=== PATIENT | female | born 1955 | race Caucasian/White ===

== ENCOUNTER 2021-03-05 11:29 | Outpatient (CLI) | payer OTHER, SELFPAY ==
--- NOTE | ~2021-03-05 | XR_ITS ---
EXAMINATION: XR chest 2V 03/05/2021 11:58 INDICATION: Chest pain and cough PROCEDURE: 2 view chest COMPARISON: No prior studies for comparison. FINDINGS: The lungs are clear. The cardiomediastinal silhouette is within normal limits. There are no pleural effusions. There is no pneumothorax suspected. IMPRESSION: 1: NO ACUTE CARDIOPULMONARY DISEASE. Reviewed, dictated and finalized at location B.
== END 2021-03-05 11:30 | disposition home or self-care (01) ==
PROVIDERS: PCP Family Medicine; Visit Provider Family Medicine
DX: R05 Cough (principal)
CPT/HCPCS: 71046

== ENCOUNTER 2021-03-15 09:35 | Outpatient (CLI) | payer OTHER, SELFPAY ==
--- NOTE | 2021-03-15 09:45 | EST_ITS ---
Patient Info Name: Sharif Mendoza Age: 65 years : 1955 Gender: Female Ht: 61 in Wt: 150 lbs BSA: 1.73 m2 Exam Date: 03/15/2021 10:32 AM Exam Location: [facility] Stress Patient Status: Outpatient Admit Date: 03/15/2021 Staff Ordering Physician: Avinash Brothers MD Attending Provider: Avinash Brothers MD Exercise Technologist: Marita Smith RDCS Exercise Physician: Juventino Melvin DO Exam Type: CA stress test treadmill Study Info Indications R07.9 - Chest pain, unspecified A treadmill exercise stress test was performed. Summary 1. 1. Negative Anshul exercise stress test for ischemic ST changes by ECG criteria. 2. 2. Good functional capacity, achieving 10 METs of workload. 3. 3. Baseline hypertension with hypertensive response to exercise. 4. 4. Appropriate HR response to exercise. 5. 5. Appropriate HR recovery at 1 minute post exercise. 6. 6. No imaging with stress testing. 7. 7. Patient informed of the above results. Protocol: Anshul Stress ECG Details Stage: REST Duration (min): 6 min : 53 sec Speed (mph): 0.0 Grade (%): 0 HR (bpm): 59 SBP (mmHg): 159 DBP (mmHg): 88 METS: --- Stage: REST Duration (min): 23 min : 18 sec Speed (mph): 0.0 Grade (%): 0 HR (bpm): 60 SBP (mmHg): 159 DBP (mmHg): 88 METS: --- Stage: STAGE 1 Duration (min): 1 min : 0 sec Speed (mph): 1.7 Grade (%): 10 HR (bpm): 91 SBP (mmHg): 159 DBP (mmHg): 88 METS: --- Stage: STAGE 1 Duration (min): 2 min : 0 sec Speed (mph): 1.7 Grade (%): 10 HR (bpm): 98 SBP (mmHg): 159 DBP (mmHg): 88 METS: --- Stage: STAGE 1 Duration (min): 3 min : 0 sec Speed (mph): 1.7 Grade (%): 10 HR (bpm): 101 SBP (mmHg): 184 DBP (mmHg): 92 METS: --- Stage: STAGE 2 Duration (min): 1 min : 0 sec Speed (mph): 2.5 Grade (%): 12 HR (bpm): 107 SBP (mmHg): 184 DBP (mmHg): 92 METS: --- Stage: STAGE 2 Duration (min): 2 min : 0 sec Speed (mph): 2.5 Grade (%): 12 HR (bpm): 119 SBP (mmHg): 205 DBP (mmHg): 78 METS: --- Stage: STAGE 2 Duration (min): 3 min : 0 sec Speed (mph): 2.5 Grade (%): 12 HR (bpm): 113 SBP (mmHg): 205 DBP (mmHg): 78 METS: --- Stage: STAGE 3 Duration (min): 1 min : 0 sec Speed (mph): 3.4 Grade (%): 14 HR (bpm): 129 SBP (mmHg): 208 DBP (mmHg): 84 METS: --- Stage: STAGE 3 Duration (min): 2 min : 0 sec Speed (mph): 3.4 Grade (%): 14 HR (bpm): 143 SBP (mmHg): 208 DBP (mmHg): 84 METS: --- Stage: STAGE 3 Duration (min): 2 min : 30 sec Speed (mph): 3.4 Grade (%): 14 HR (bpm): 145 SBP (mmHg): 208 DBP (mmHg): 84 METS: --- Stage: RECOVERY Duration (min): 0 min : 29 sec Speed (mph): 0.0 Grade (%): 0 HR (bpm): 130 SBP (mmHg): 205 DBP (mmHg): 87 METS: ---
== END 2021-03-15 09:36 | disposition home or self-care (01) ==
PROVIDERS: PCP Family Medicine; Visit Provider Family Medicine
DX: R07.9 Chest pain, unspecified (principal)
CPT/HCPCS: 93017

== ENCOUNTER 2022-03-22 01:35 | Day surgery (SDC) | payer MEDICARE, SELFPAY ==
[2022-03-12 09:48] VITALS: BMI 30.4
[2022-03-22 09:01] VITALS: BP 136/92; PULSE 84; RESP 18; TEMP 36.4; O2SAT 99; BMI 30.7
--- NOTE | 2022-03-22 09:06 | WPDANESEPPF ---
Anes - Initial Pre Proc Eval Procedure: Operation Date: 03/22/22 10:00 Proposed Procedures p Esophagogastroduodenoscopy & Colonoscopy - Isaias Morales MD Date/Time: 03/22/22 09:06 Surgeon: Isaias Morales MD Pre Op Diagnosis: hx of colon polyps; gerd Patient Data Age: 66 Gender: F Height: 1.55 m Weight: 73.9 kg Last Vital Signs Temp 36.4 C L 03/22/22 09:01 Pulse 84 03/22/22 09:01 Resp 18 03/22/22 09:01 BP 136/92 H 03/22/22 09:01 Pulse Ox 99 03/22/22 09:01 Allergies Allergy/AdvReac Type Severity Reaction Status Date / Time No Known Allergies Allergy Mild n/a Uncoded 03/12/22 10:04 Home Medications Medication Instructions Recorded Confirmed Type fluticasone propionate 50 1 spray INTRANASAL PRN PRN 08/14/21 03/12/22 History mcg/actuation nasal spray,suspension oxybutynin chloride 10 mg 10 mg PO DAILY 08/14/21 03/12/22 History tablet,extended release 24 hr estradiol 1 g VAGINAL 2XW #42.5 g 01/08/22 03/12/22 Rx atorvastatin 10 mg tablet 10 mg PO DAILY #90 tablet 01/11/22 03/12/22 Rx irbesartan 150 mg tablet 150 mg PO DAILY #90 tablet 01/11/22 03/12/22 Rx omeprazole 20 mg capsule,delayed 20 mg PO DAILY #90 cap 02/19/22 03/12/22 Rx release meloxicam 15 mg tablet 15 mg PO DAILY PRN #60 tablet 03/07/22 03/12/22 Rx sertraline 100 mg tablet 100 mg PO DAILY #90 tablet 03/07/22 03/12/22 Rx Patient hx anesthesia problems: none Family hx anesthesia problems: none Results Review: All pre-operative results and documents have been reviewed as part of the pre-operative evaluation. [facility] Past Medical History Medical History Acute bronchitis Acute non-recurrent maxillary sinusitis Anxiety and depression BMI 28.0-28.9,adult BMI 29.0-29.9,adult BMI 31.0-31.9,adult Carpal tunnel syndrome of right wrist Chest pain exercise stress test on 03/15/2021 was normal Chronic cough Chronic flank pain (~01/2022) right flank pain intermittent Encounter for Papanicolaou smear for cervical cancer screening GERD (gastroesophageal reflux disease) Hordeolum externum left lower eyelid Obesity (BMI 30.0-34.9) Polyp of colon (08/09/19) 10-13 mm polyp at splenic flexure on colonoscopy 08/09/2019 with recheck in 3-[address] Morales Screening mammogram, encounter for Mammogram 01/14/2022 unremarkable with recheck in 1 year. Welcome to Medicare preventive visit Surgical History Surgical History History of gynecological procedure (02/23/19) Tension-free vaginal tape History of gynecological procedure (~11/10/94) Tubal Sterilization Family History Family History Sibling Breast cancer sister Social History Social History Smoking status: Never smoker Alcohol intake: never Substance use: never Substance use type: does not use Living arrangements: with family Additional living arrangements comments: spouse Gender identity (if verbalized by the patient): Female Sexual Orientation (if Verbalized by the Patient): Straight or Heterosexual Spiritual care concerns: No Anes - Eval Final PreProcedure Day of Procedure 03/22/22 09:06 Patient weight: obese Heart: regular rate and rhythm Lungs: clear to auscultation Airway: Mallampati scale class II Neurological: alert and oriented Last oral intake: >/= 8 hours ASA classification: III Emergent: no Anesthetic plan: proceed Anesthesia type and monitoring: general GIVS and standard monitoring Results Review: All pre-operative results and documents have been reviewed as part of the pre-operative evaluation. Informed Consent: The patient's anesthetic plan and its attendant risks and benefits were discussed with the patient/family/POA. Questions were solicited and answers provided to the satisfaction of the patien
[2022-03-22] MEDS: LACTATED RINGERS 1,000 ML 150 ML IV CONT (09:08)
--- NOTE | 2022-03-22 09:12 | WPDGICN ---
Assessment and Plan Assessment and plan (1) GERD (gastroesophageal reflux disease): Qualifiers: Esophagitis presence: without esophagitis Qualified Code(s): K21.9 - Gastro-esophageal reflux disease without esophagitis Code(s): K21.9 - Gastro-esophageal reflux disease without esophagitis Status: Acute Assessment and Plan: Patient with chronic GE reflux disease. Currently controlled with omeprazole 20mg p.o. daily and anti-reflux measures. Plan to continue this therapy EGD will be performed because of chronic GE reflux. further recommendations may be given after endoscopy. (2) History of colon polyps: Code(s): Z86.010 - Personal history of colonic polyps Status: Acute Assessment and Plan: Patient has a history of colon polyps. Most recently 2019. Further recommendations will be given after follow-up colonoscopy today. GI Consult Note Consult date/time: 03/22/22 09:12 HPI: Sharif Mendoza is a 66 year old female Presents for colonoscopy an EGD. Patient has a history of colon polyps. Most recently found to have colon polyps in 2019. She presents today for follow-up screening surveillance colonoscopy. She reports that her current weight appetite and bowel movements are normal. She presents for neoplasia screening colonoscopy. Additionally patient reports a long history of heartburn and acid reflux. She has been treated with omeprazole 20mg p.o. daily with good response to symptoms. She no longer has heartburn. She denies any dysphagia. Although states occasionally drinking water will make her cough. She has had no weight loss or bleeding. Family history noncontributory. EGD is requested because of chronic heartburn. Review of Systems Review of Systems: All systems reviewed & are unremarkable except as noted in HPI and below [facility] Past Medical History Medical History Acute bronchitis Acute non-recurrent maxillary sinusitis Anxiety and depression BMI 28.0-28.9,adult BMI 29.0-29.9,adult BMI 31.0-31.9,adult Carpal tunnel syndrome of right wrist Chest pain exercise stress test on 03/15/2021 was normal Chronic cough Chronic flank pain (~01/2022) right flank pain intermittent Encounter for Papanicolaou smear for cervical cancer screening GERD (gastroesophageal reflux disease) Hordeolum externum left lower eyelid Obesity (BMI 30.0-34.9) Polyp of colon (08/09/19) 10-13 mm polyp at splenic flexure on colonoscopy 08/09/2019 with recheck in 3-[address] Morales Screening mammogram, encounter for Mammogram 01/14/2022 unremarkable with recheck in 1 year. Welcome to Medicare preventive visit Surgical History Surgical History History of gynecological procedure (02/23/19) Tension-free vaginal tape History of gynecological procedure (~11/10/94) Tubal Sterilization Family History Family History Sibling Breast cancer sister Social History Social History Smoking status: Never smoker Alcohol intake: never Substance use: never Substance use type: does not use Living arrangements: with family Additional living arrangements comments: spouse Gender identity (if verbalized by the patient): Female Sexual Orientation (if Verbalized by the Patient): Straight or Heterosexual Spiritual care concerns: No Meds Home Medications and Allergies Home Medications Medication Instructions Recorded Confirmed Type fluticasone propionate 50 1 spray INTRANASAL PRN PRN 08/14/21 03/12/22 History mcg/actuation nasal spray,suspension oxybutynin chloride 10 mg 10 mg PO DAILY 08/14/21 03/12/22 History tablet,extended release 24 hr estradiol 1 g VAGINAL 2XW #42.5 g 01/08/22 03/12/22 Rx atorvastatin 10 mg tablet 10 mg PO DAILY #90
[2022-03-22 10:07] VITALS: BP 107/64; PULSE 89; RESP 19; O2SAT 97
[2022-03-22 10:17] VITALS: BP 113/67; PULSE 81; RESP 23; O2SAT 95
[2022-03-22 10:27] VITALS: BP 117/68; PULSE 85; RESP 20; O2SAT 96
--- NOTE | 2022-03-22 12:30 | SUR.OPER ---
EGD START 945, END 950 COLONOSCOPY START 956, END 1006 ANESTHESIA PROVIDED YANKAUER SUCTION AND AMBU BAG ASSISTANCE TO PT DURING PROCEDURE.
== END 2022-03-22 10:30 | disposition home or self-care (01) ==
PROVIDERS: PCP Family Medicine; Visit Provider Internal Medicine Gastroenterology
PROC: 0DJ08ZZ Inspection of Upper Intestinal Tract, Via Natural or Artificial Opening Endoscopic (ICD-10-PCS; CPT 43235; principal; 2022-03-22 10:00)
DX: Z12.11 Encounter for screening for malignant neoplasm of colon (principal); K64.8 Other hemorrhoids; D12.2 Benign neoplasm of ascending colon; K21.9 Gastro-esophageal reflux disease without esophagitis; F41.8 Other specified anxiety disorders; E66.9 Obesity, unspecified; Z68.30 Body mass index [BMI] 30.0-30.9, adult
CPT/HCPCS: 45385; 43235; 88305; J2704; J7120

== ENCOUNTER 2024-05-01 12:19 | Emergency (ER) | payer MEDICARE, SELFPAY ==
--- NOTE | ~2024-05-01 | XR_ITS ---
XR wrist RT min 3V DATE: 05/01/2024 13:09 INDICATION: Fell today. Wrist injury, lateral pain. TECHNIQUE: 4 views COMPARISON: None FINDINGS: Approximately 2.8 mm dorsally displaced comminuted intra-articular fracture of the distal r adius with mild impaction. There is approximately 13 degrees apex anterior angulation with associated dorsal inclination of the distal radial articular surface. Normal radiocarpal alignment. IMPRESSION: Impacted comminuted intra-articular approximately 2.8 mm dorsally displaced fracture of t he distal radius with 13 degrees apex anterior angulation Reviewed, dictated and finalized at location A. IMPRESSION: Impacted comminuted intra-articular approximately 2.8 mm dorsally d isplaced fracture of the distal radius with 13 degrees apex anterior angulation
[2024-05-01 12:21] VITALS: BP 124/80; PULSE 63; RESP 16; O2SAT 96
--- NOTE | 2024-05-01 12:53 | ED.GENADULT ---
HPI - General Adult General Chief complaint: Extremity Injury, Upper Stated complaint: fall, wrist injury Time Seen by Provider: 05/01/24 12:25 History of Present Illness HPI narrative: 68-year-old female presenting to the emergency department for evaluation for right wrist pain. Patient was standing on a chair and fell injuring her right wrist. Patient has a laceration to her right wrist she is unsure how this happened. Patient denies striking her head denies loss of consciousness. Patient denies any right shoulder right elbow pain. Related Data Home Medications Medication Instructions Recorded Confirmed fluticasone propionate 50 1 spray intranasal PRN PRN Sinus 08/14/21 10/08/23 mcg/actuation nasal Symptoms spray,suspension (Flonase Allergy Relief) oxybutynin chloride 10 mg 10 mg PO DAILY 08/14/21 04/26/24 tablet,extended release 24 hr Allergies Allergy/AdvReac Type Severity Reaction Status Date / Time trimethoprim [From Bactrim] AdvReac Mild Hives Verified 05/01/24 12:27 Review of Systems Review of Systems: All systems reviewed & are unremarkable except as noted in HPI and below PMFSH Past Medical History Medical History Acute bronchitis Acute non-recurrent maxillary sinusitis Acute serous otitis media of left ear Anxiety and depression At low risk for fall BMI 27.0-27.9,adult BMI 28.0-28.9,adult BMI 29.0-29.9,adult BMI 30.0-30.9,adult BMI 31.0-31.9,adult Carpal tunnel syndrome of right wrist Chest pain exercise stress test on 03/15/2021 was normal Chronic cough normal chest x-ray 03/05/2021. Chronic flank pain (~01/2022) right flank pain intermittent Encounter for Papanicolaou smear for cervical cancer screening GERD (gastroesophageal reflux disease) normal EGD 03/22/2022. Dr. Morales Hordeolum externum left lower eyelid Obesity (BMI 30.0-34.9) Overweight (BMI 25.0-29.9) Polyp of colon (08/09/19) 10-13 mm polyp at splenic flexure on colonoscopy 08/09/2019 with recheck in 3-[address] Morales. Single sessile polyp 03/22/2022 with recheck in 5 years. Screening mammogram, encounter for Mammogram 01/14/2022 unremarkable with recheck in 1 year. Normal mammogram 02/14/2023. Seasonal allergies Welcome to Medicare preventive visit Surgical History Surgical History History of gynecological procedure (02/23/19) Tension-free vaginal tape History of gynecological procedure (~11/10/94) Tubal Sterilization Family History Family History Sibling Breast cancer sister Social History Social History Smoking status: Never smoker Alcohol intake: never Substance use: never Substance use type: does not use Do You Feel Safe in your Home?: Yes Lack of Transportation: No Current Housing: Decline to Answer Concerned About Future Housing: Decline to Answer Difficulty Paying Gas/Electric Bills: Decline to Answer Difficulty Paying for Meds: Decline to Answer Currently Unemployed: Decline to Answer Difficulty w/ Childcare or Family Care: Decline to Answer Living arrangements: with family Additional living arrangements comments: spouse Occupation/Education: retired Gender identity (if verbalized by the patient): Female Sexual Orientation (if Verbalized by the Patient): Straight or Heterosexual Spiritual care concerns: No Exam Narrative: APPEARANCE: Well appearing, no pain, no distress, well-nourished. HEAD: normocephalic, atraumatic. EYES: PERRLA/EOMI, conjunctivae clear. NOSE: Normal no drainage EARS:TMS clear with good light reflex. THROAT: Pharynx clear, no exudate. NECK: Supple. No adenopathy, no masses. RESPIRATORY: Airway patent, respirations nonlabored. Clear to auscultation bilaterally, no rales, rhonchi, wheezing. CARDIOVASCULAR: Regular rate
[2024-05-01] MEDS: TETANUS,DIPHTHERIA,AC PERTUSSIS ADULT (0.5 ML) BOOSTRIX IM (13:19)
[2024-05-01 13:37] LABS: Basophils Percent Auto 0.4 % (0.2-1.2); Eosinophils Percent Auto 0.6 % (0-4.4); Hematocrit 41.5 % (37.0-47.0); Hemoglobin 14.1 g/dL (12.0-15.0); Immature Granulocyte Absolute 0.03 K/mm3 (0.00-0.031); Immature Granulocyte Percent A 0.4 % (0-0.5); Lymphocytes Absolute Auto 1.39 K/mm3 (0.9-3.2); Lymphocytes Percent Auto 19.7 % (18.3-44.2); Mean Corpuscular Volume 88.3 fl (80-100); Mean Platelet Volume 11.3 fl (7.4-10.4); Monocytes Absolute Auto 0.4 K/mm3 (0.1-0.6); Monocytes Percent Auto 6.2 % (2.6-8.5); Neutrophils Absolute Auto 5.1 K/mm3 (1.3-6.7); Neutrophils Percent Auto 72.7 % (45.5-73.1); Platelet Count Result 182 k/mm3 (150-375); Red Cell Distribution Width 14.1 % (11.5-14.5); White Blood Count 7.1 K/mm3 (4.5-10.0)
[2024-05-01 13:49] LABS: Alanine Aminotransferase 21 U/L (6-35); Albumin Level 4.5 g/dL (3.5-5.1); Alkaline Phosphatase 104 U/L (38-126); Anion Gap 5 mmol/L (4-12); Aspartate Amino Transferase 35 U/L (14-36); Bilirubin,Total 0.6 mg/dL (0.2-1.3); Blood Urea Nitrogen 15 mg/dL (7-17); Calcium 9.1 mg/dL (8.4-10.2); Carbon Dioxide 25 mmol/L (22-30); Chloride 107 mmol/L (98-107); Estimated CRCL calculation 68 ml/min; Estimated Glomerular Filt Rate > 60; Glucose 112 mg/dL (65-110); Potassium 4.1 mmol/L (3.4-5.0); Sodium 137 mmol/L (137-145)
[2024-05-01 13:59] LABS: Prothrombin Time 13.3 Seconds (11.1-14.7)
[2024-05-01 14:00] LABS: Partial Thromboplastin Time 25.5 Seconds (22.3-36.8)
[2024-05-01] MEDS: LIDO 1%/EPINEPHRINE 1:100,000 20 ML VIAL 10 ML INFILTRATE (14:22)
[2024-05-01] MEDS: AMOXICILLIN/CLAVULANATE K 875-125 MG TAB 1 TABLET PO (14:22)
[2024-05-01 15:34] VITALS: BP 126/74; PULSE 68; RESP 16; TEMP 36.6; O2SAT 100
== END 2024-05-01 15:37 | disposition home or self-care (01) ==
PROVIDERS: Emergency Provider Emergency Medicine; PCP Family Medicine
DX: S61.511A Laceration without foreign body of right wrist, initial encounter (principal); S52.571A Other intraarticular fracture of lower end of right radius, initial encounter for closed fracture; Z23 Encounter for immunization; K21.9 Gastro-esophageal reflux disease without esophagitis; E66.3 Overweight; Z68.29 Body mass index [BMI] 29.0-29.9, adult; Z86.010 Personal history of colon polyps; Z79.899 Other long term (current) drug therapy; W07.XXXA Fall from chair, initial encounter
CPT/HCPCS: 12001; 29125; 36415; 73110; 80053; 85025; 85610; 85730; 90471; 90715; 99284; A9270

== ENCOUNTER → 2024-09-13 15:51 | Outpatient (CLI) | payer MEDICARE, SELFPAY ==
--- NOTE | ~2024-09-13 | XR_ITS ---
EXAMINATION: XR foot LT min 3V DATE: 09/13/2024 16:04 INDICATION: Achilles tendinitis, left leg. TECHNIQUE: 4 views of left foot were obtained. COMPARISON: None. FINDINGS: Alignment is normal. No fracture. There is mild osteoarthritis of first metatarsophalangeal joint and some of the interphalangeal joints. There are enthesophytes at the posterior and plantar a spects of calcaneal tuberosity. IMPRESSION: 1. Mild polyarticular osteoarthritis. Reviewed, dictated and finalized at location A. [employer]
== END ==
LOC: EXPTROY 15:53
PROVIDERS: PCP Family Medicine; Visit Provider Family Medicine
DX: M19.09 Primary osteoarthritis, other specified site (principal); M76.62 Achilles tendinitis, left leg
CPT/HCPCS: 73630